=== PATIENT | male | born 1955 | race Caucasian/White ===

== ENCOUNTER 2023-02-20 17:15 | Emergency (ER) | payer MEDICARE, BC ==
[2023-02-20] MEDS ORDERED: Take Home: Cyclobenzaprine 10 MG Tab, 4 Tab Pack PO ONE (17:27)
== END 2023-02-20 18:10 | disposition home or self-care (01) ==
LOC: LL.ED 17:15
DX: M62.838 Other muscle spasm (principal); I10 Essential (primary) hypertension; Z88.0 Allergy status to penicillin; Z79.899 Other long term (current) drug therapy
CPT/HCPCS: 99283; A9270-GY

== ENCOUNTER 2024-06-13 11:04 | Day surgery (SDC) | payer MEDICARE ==
[~2024-06-13 11:04] MED LIST: Propofol 200 MG/20 ML SDV ONE; Sodium Chloride 0.9% 10 ML Syringe FLUSH PRN
[2024-06-13] MEDS: Lactated Ringers 1,000 ML IV SCH (12:09)
== END 2024-06-13 14:00 | disposition home or self-care (01) ==
LOC: LL.SDS 11:04
PROVIDERS: ATTEND Surgery
DX: Z12.11 Encounter for screening for malignant neoplasm of colon (principal); K57.30 Diverticulosis of large intestine without perforation or abscess without bleeding; I10 Essential (primary) hypertension; C82.94 Follicular lymphoma, unspecified, lymph nodes of axilla and upper limb; Z79.899 Other long term (current) drug therapy
CPT/HCPCS: J2704; J7120

== ENCOUNTER 2024-10-05 07:10 | Emergency (ER) | payer MEDICARE ==
[2024-10-05 07:43] LABS: BASOPHILS ABSOLUTE AUTO 0.03 K/uL (0.00-0.20); BASOPHILS PERCENT AUTO 0.3 % (0.0-2.0); EOSINOPHILS ABSOLUTE AUTO 0.09 K/uL (0.00-0.50); EOSINOPHILS PERCENT AUTO 0.8 % (0.0-5.0); HEMATOCRIT 47.7 % (39.0-49.0); HEMOGLOBIN 16.2 g/dL (13.1-16.8); IMMATURE GRAN ABSOLUTE AUTO 0.03 10^3/uL (0.00-0.04); IMMATURE GRAN PERCENT AUTO 0.3 % (0.0-0.4); LYMPHOCYTES ABSOLUTE AUTO 0.78 K/uL (0.50-3.50); LYMPHOCYTES PERCENT AUTO 7.3 % (10.0-50.0); MEAN CORPUSCULAR HEMOGLOBIN 29.3 pg (28.2-33.3); MEAN CORPUSCULAR VOLUME 86.4 fL (84.0-98.0); MONOCYTES ABSOLUTE AUTO 1.39 K/uL (0.00-1.00); NEUTROPHILS ABSOLUTE AUTO 8.36 K/uL (1.40-7.00); NEUTROPHILS PERCENT AUTO 78.3 % (45.0-80.0); PLATELET COUNT,PLT 263 K/uL (150-350); RED BLOOD CELL COUNT 5.52 M/uL (4.33-5.41); WHITE BLOOD CELL COUNT,WBC 10.7 K/uL (4.0-10.2)
[2024-10-05 07:58] LABS: ANION GAP 7.2 meq/L (7-15); BILIRUBIN TOTAL 1.1 mg/dL (0.2-1.0); C-REACTIVE PROTEIN 4.21 mg/dL (0.05-0.30); CALCIUM 10.1 mg/dL (8.5-10.1); CARBON DIOXIDE,CO2 28.8 mmol/L (21.0-32.0); CREATININE 1.1 mg/dL (0.51-1.17); EST CRCL DRUG DOSING (CG) 66.55 mL/min; POTASSIUM,K 4.3 mmol/L (3.5-5.1)
[2024-10-05 08:02] LABS: INR 1.1 (0.9-1.1); PROTHROMBIN TIME 11.1 SEC (9.0-11.1)
[2024-10-05] MEDS: Take Home: oxyCODONE HCl 5 MG Tab, 5 Tab Pack PO ONE (09:51)
== END 2024-10-05 09:55 | disposition home or self-care (01) ==
LOC: SUPCPDRO 07:10 → LL.ED 07:10
DX: K57.32 Diverticulitis of large intestine without perforation or abscess without bleeding (principal); Z79.899 Other long term (current) drug therapy
CPT/HCPCS: 36415; 74019; 74176; 80053; 83690; 83735; 85025; 85610; 86140; 99284; A9270-GY